=== PATIENT | male | born 1965 | race Caucasian/White ===

== ENCOUNTER 2023-04-13 20:56 | Observation (INO) ==
--- NOTE | 2023-04-13 21:22 | DR.CP ---
HPI Time Seen Time Seen by Provider: 04/13/23 21:21 PCP Primary Care Physician: AMARAN Complaint Chief Complaint Doctor Comments: Patient states that he began to have chest pressure this am while he was lying down. Patient states that he has been feeli ng weak all day and has had pain for the past 13 hrs.He states the pain would increase when he would ambulate. But he did not ambulate much because he has been weak. Patient states that he took his am meds this morning: lisinopril/topomax.Patient states that his pain is 5/10 and is a heaviness like something is sitting on his chest.Patient also feels SOB.Patient has h/o htn,he is 58. Patient denies:FH,DM,hypercholesterolemia,tobacco use,CAD,n,v,fever,h/o surgery in the past 3 months. Chief Complaint:: PATIENT C/O CHEST PRESSURE WITH PAIN THAT STARTED THIS MORNING WHEN HE GOT UP. PATIENT STATES THE PAIN HAS BEEN INTERMITTEN, BUT THE PRESSURE WILL NOT STOP. PATIENT STATES HE HAS BEEN FEELING FATIGUED TODAY AND HAVING SHORTNESS OF BREATH. COVID-19 Coronavirus risk:travel/contact w/high risk person: No Has patient experienced Coronavirus symptoms: No Source History Provided: Patient Mode of Arrival Mode of Arrival: Ambulatory Timing Onset of Chief Complaint: 04/13/23 PMH PMH Past Medical History: Yes Past Medical History: Migraines, Gout and Hypertension Past Surgical History: Yes Surgical History: Appendectomy and Ortho Surgery Past Surgical History Comment: KNEE SURGERY X3 Family History History of Family Medical Conditions: No Social History Does any household member use tobacco: No Alcohol Use: None Do you use any recreational Drugs:: No Lives With: Family Lives Where: Home Travel Risk Coronavirus risk:travel/contact w/high risk person: No Has patient experienced Coronavirus symptoms: No Infectious screening In the last 2 months have you had wt loss of >10#?: NO Have you had fever, night sweats or hemotysis?: No Have you traveled outside the country in the last 6 months?: No Isolation: Standard ROS Review of Systems Constitutional: No Symptoms Reported; negative Chills or Fever Eyes: No Symptoms Reported ENTM: No Symptoms Reported Respiratoy: No Symptoms Reported Cardiovascular: No Symptoms Reported and Chest Pain; negative Palpitations or Syncope Gastrointestinal/Abdominal: No Symptoms Reported Genitourinary: No Symptoms Reported Neurological: No Symptoms Reported and Weakness; negative Headache, Numbness or Paresthesia Musculoskeletal: No Symptoms Reported Integumentary: No Symptoms Reported Hematologic/Lymphatic: No Symptoms Reported Endocrine: No Symptoms Reported Psychiatric: No Symptoms Reported All Other Systems: Reviewed and Negative PE Vitals Vitals: Vital Signs Temperature 98.0 F Pulse Rate [Right] 99 Pulse Rate 72 Pulse Rate 78 Pulse Rate 73 Pulse Rate 77 Pulse Rate 80 Pulse Rate 77 Pulse Rate 77 Pulse Rate 67 Pulse Rate 66 Pulse Rate 68 Pulse Rate 70 Pulse Rate 71 Pulse Rate 73 Pulse Rate 80 Pulse Rate 76 Pulse Rate 78 Pulse Rate 79 Pulse Rate 75 Pulse Rate 80 Pulse Rate 84 Pulse Rate 83 Pulse Rate 77 Pulse Rate 78 Pulse Rate 82 Pulse Rate 78 Pulse Rate 80 Pulse Rate 81 Pulse Rate 85 Pulse Rate 78 Pulse Rate 72 Pulse Rate 73 Pulse Rate 73 Pulse Rate 73 Pulse Rate 77 Pulse Rate 81 Pulse Rate 80 Pulse Rate 83 Pulse Rate 87 Pulse Rate 85 Pulse Rate 83 Pulse Rate 87 Pulse Rate 85 Pulse Rate 90 Pulse Rate 92 Pulse Rate 97 Pulse Rate 97 Pulse Rate 91 Pulse Rate 97 Pulse Rate 93 Pulse Rate 98 Pulse Rate 103 Pulse Rate 101 Pulse Rate 98 Respiratory Rate 18 Respiratory Rate 24 Respiratory Rate 17 Respiratory Rate 36 Respiratory Rate 29 Respiratory Rate 20 Respiratory Rate 28 Respiratory Rate 15 Respiratory Rate 16 Respiratory Rate 17 Respiratory Rate 16 Respiratory Rate 17 Respiratory Rate 17 Respiratory Rate 26 Respiratory Rate 23 Respiratory Rate 24 Respiratory Rate 28 Respiratory Rate 24 Respiratory Rate 28 Respiratory Rate 35 Respiratory Rate 27 Respiratory Rate 17 Respiratory Rate 20 Respiratory Rate 24 Respiratory Rate 22 Respiratory Rate 22 Respiratory Rate 26 Respiratory Rate 22 Respiratory Rate 27 Respiratory Rate 18 Respiratory Rate 17 Respiratory Rate 21 Respiratory Rate 16 Respiratory Rate 17 Respiratory Rate 17 Respiratory Rate 17 Respiratory Rate 18 Respiratory Rate 20 Respiratory Rate 20 Respiratory Rate 18 Respiratory Rate 20 Respiratory Rate 17 Respiratory Rate 21 Respiratory Rate 24 Respiratory Rate 19 Respiratory Rate 19 Respiratory Rate 19 Respiratory Rate 24 Respiratory Rate 24 Respiratory Rate 24 Respiratory Rate 20 Respiratory Rate 20 Respiratory Rate 26 Respiratory Rate 20 Respiratory Rate 23 Respiratory Rate 26 Respiratory Rate 25 Respiratory Rate 16 Respiratory Rate 20 Blood Pressure [Right Arm] 154/85 Blood Pressure 140/72 Blood Pressure 153/90 Blood Pressure 153/90 Blood Pressure 132/74 Blood Pressure 136/76 Blood Pressure 136/79 Blood Pressure 146/83 Blood Pressure 156/81 Blood Pressure 127/74 Blood Pressure 131/77 Blood Pressure 129/75 Blood Pressure 126/77 Blood Pressure 130/79 Blood Pressure 139/77 Blood Pressure 151/82 Blood Pressure 129/80 Blood Pressure 134/78 Blood Pressure 131/68 Blood Pressure 142/76 Blood Pressure 133/72 Blood Pressure 145/76 Blood Pressure 138/73 Blood Pressure 153/80 Blood Pressure 151/75 Blood Pressure 147/73 Blood Pressure 133/71 Blood Pressure 128/67 Blood Pressure 143/80 Blood Pressure 129/79 Blood Pressure 128/77 Blood Pressure 127/71 Blood Pressure 122/69 Blood Pressure 120/72 Blood Pressure 130/77 Blood Pressure 129/77 Blood Pressure 134/76 Blood Pressure 134/76 Blood Pressure 135/73 Blood Pressure 138/79 Blood Pressure 140/78 Blood Pressure 136/79 Blood Pressure 134/76 Blood Pressure 130/76 Blood Pressure 139/76 Blood Pressure 137/73 Blood Pressure 128/71 Blood Pressure 132/74 Blood Pressure 154/85 Blood Pressure 155/82 Blood Pressure 159/84 Blood Pressure 157/83 Blood Pressure 162/91 Blood Pressure 162/91 O2 Sat by Pulse Oximetry 96 O2 Sat by Pulse Oximetry 95 O2 Sat by Pulse Oximetry 96 O2 Sat by Pulse Oximetry 96 O2 Sat by Pulse Oximetry 97 O2 Sat by Pulse Oximetry 97 O2 Sat by Pulse Oximetry 97 O2 Sat by Pulse Oximetry 96 O2 Sat by Pulse Oximetry 96 O2 Sat by Pulse Oximetry 96 O2 Sat by Pulse Oximetry 95 O2 Sat by Pulse Oximetry 96 O2 Sat by Pulse Oximetry 98 O2 Sat by Pulse Oximetry 97 O2 Sat by Pulse Oximetry 96 O2 Sat by Pulse Oximetry 97 O2 Sat by Pulse Oximetry 97 O2 Sat by Pulse Oximetry 97 O2 Sat by Pulse Oximetry 97 O2 Sat by Pulse Oximetry 99 O2 Sat by Pulse Oximetry 96 O2 Sat by Pulse Oximetry 95 O2 Sat by Pulse Oximetry 96 O2 Sat by Pulse Oximetry 98 O2 Sat by Pulse Oximetry 96 O2 Sat by Pulse Oximetry 96 O2 Sat by Pulse Oximetry 96 O2 Sat by Pulse Oximetry 97 O2 Sat by Pulse Oximetry 97 O2 Sat by Pulse Oximetry 97 O2 Sat by Pulse Oximetry 95 O2 Sat by Pulse Oximetry 94 O2 Sat by Pulse Oximetry 95 O2 Sat by Pulse Oximetry 94 O2 Sat by Pulse Oximetry 95 O2 Sat by Pulse Oximetry 95 O2 Sat by Pulse Oximetry 96 O2 Sat by Pulse Oximetry 95 O2 Sat by Pulse Oximetry 96 O2 Sat by Pulse Oximetry 95 O2 Sat by Pulse Oximetry 95 O2 Sat by Pulse Oximetry 95 O2 Sat by Pulse Oximetry 96 O2 Sat by Pulse Oximetry 95 O2 Sat by Pulse Oximetry 94 O2 Sat by Pulse Oximetry 94 O2 Sat by Pulse Oximetry 97 O2 Sat by Pulse Oximetry 96 O2 Sat by Pulse Oximetry 96 O2 Sat by Pulse Oximetry 96 O2 Sat by Pulse Oximetry 97 O2 Sat by Pulse Oximetry 98 O2 Sat by Pulse Oximetry 96 O2 Sat by Pulse Oximetry 98 General Limitations: No Limitations General Appearance: Alert and In No Apparent Distress Head Head Exam: Normal Inspection Eyes Eye exam: Normal Appearance ENT ENT Exam: Normal Exam Chest Chest Inspection: Normal Inspection Respiratory Respiratory Exam: Normal Lung Sounds Bilat Respiratory Exam: Bilateral: Clear to Auscultation Cardiovascular Cardiovascular Exam: Regular Rate and Normal Rhythm Pulse: Normal Edema: Normal Abdominal Exam Abdominal Exam: Normal Inspection, Normal Bowel Sounds and Soft Extremities Extremities Exam: Normal Inspection Back Back Exam: Normal Inspection Neurologic Neurological Exam: Alert and Oriented X3 Psychiatric Psychiatric Exam: Normal Affect and Normal Mood Skin Skin Exam: Warm, Dry, Intact and Normal Color MDM Differential Diagnosis Differential Diagnosis: Angina, CHF, Myocardial Infarction, Pancreatitis, Pneumonia and Pulmonary Embolus COURSE Treatment Treatment: 21:21 Examined patient.IV access initiated. Labs and CXR ordered. 21:25 ASA 324mg /NTG sl ordered/tylenol 500mg x 2. 21:56 EKG revealed t wave inversion lead III/Tropo 7.6/Mg 2.o/D-Dimer 0.31/Creat 1.36/CXR no acute process 00:50 Patient's 2nd troponin is 8.3 and his second EKG revealed twave inversion lead III. Patient continues with chest pain Patient has been accepted by Dr Fenton to his service for further evaluation at [facility]. Patient has been stable in the ED. ROR Labs Reviewed Laboratory Results Reviewed?: Yes Result Diagrams: 04/13/23 21:25 04/13/23 21:25 Laboratory: WBC 12.4 X10^3/uL (3.6-10.0) H 04/13/23 21:25 RBC 4.76 X10^6/uL (4.7-6.0) 04/13/23 21:25 Hgb 15.6 g/dL (13.5-18.0) 04/13/23 21:25 Hct 45.6 % (42.0-54.0) 04/13/23 21:25 MCV 95.8 fL (80.0-100.0) 04/13/23 21:25 MCH 32.7 pg (27.0-34.0) 04/13/23 21: MCHC 34.2 g/dL (33.0-35.0) 04/13/23 21:25 RDW 12.3 % (11.6-16.5) 04/13/23 21:25 Plt Count 251 X10^3/uL (150.0-450.0) 04/13/23 21:25 MPV 9.1 fL (7.4-11.0) 04/13/23 21:25 Neut % (Auto) 67.5 % (42.0-75.0) 04/13/23 21:25 Lymph % (Auto) 18.0 % (21.0-51.0) L 04/13/23 21:25 [place] % (Auto) 10.4 % (0.0-13.0) 04/13/23 21:25 Eos % (Auto) 3.6 % (0.9-2.9) H 04/13/23 21:25 Baso % (Auto) 0.5 % (0.2-1.0) 04/13/23 21:25 Neut # (Auto) 8.4 x10^3/uL (2.2-4.8) H 04/13/23 21:25 Lymph # (Auto) 2.2 X10^3/uL (1.3-2.9) 04/13/23 21:25 [place] # (Auto) 1.3 x10^3/uL (0.3-0.8) H 04/13/23 21:25 Eos # (Auto) 0.4 x10^3/uL (0.0-0.2) H 04/13/23 21:25 Baso # (Auto) 0.1 X10^3/uL (0.0-0.1) 04/13/23 21: Absolute Nucleated RBC 0.1 /100WBC 04/13/23 21: PT 12.7 SECONDS (11.8-14.3) 04/13/23 21:25 INR Target Range - 04/13/23 21: INR 0.97 (0.8-1.3) 04/13/23 21:25 APTT 27.9 SECONDS (22.9-36.5) 04/13/23 21:25 PTT Comment - 04/13/23 21:25 D-Dimer 0.34 ug/ml (0.0-0.57) 04/13/23 21:25 D-Dimer Cancelled 04/13/23 21:25 Sodium 139 mmol/L (136-145) 04/13/23 21:25 Corrected Sodium TNP 04/13/23 21:25 Potassium 4.3 mmol/L (3.5-5.1) 04/13/23 21:25 Chloride 103 mmol/L (98-107) 04/13/23 21:25 Carbon Dioxide 28.5 mmol/L (21-32) 04/13/23 21:25 BUN 12 mg/dL (7-18) 04/13/23 21:25 Creatinine 1.36 mg/dL (0.70-1.30) H 04/13/23 21:25 Est GFR (MDRD) Af Amer > 60 (>60) 04/13/23 21:25 Est GFR (MDRD) Non-Af 57 (>60) L 04/13/23 21:25 Glucose 96 mg/dL (65-99) 04/13/23 21:25 Calcium 8.5 mg/dL (8.5-10.1) 04/13/23 21:25 Corrected Calcium 9.1 mg/dL (8.5-10.1) 04/13/23 21:25 Magnesium 2.0 mg/dL (2.0-2.9) 04/13/23 21:25 Total Bilirubin 0.30 mg/dL (0.2-1.0) 04/13/23 21:25 AST 16 Units/L (15-37) 04/13/23 21:25 ALT 17 Units/L (12-78) 04/13/23 21:25 Alkaline Phosphatase 100 Units/L (46-116) 04/13/23 21:25 Creatine Kinase 72 Units/L (39-308) 04/13/23 21:25 Troponin I High Sens 8.3 ng/L (4.0-60.0) 04/13/23 23:35 B-Natriuretic Peptide 29.3 pg/mL (0-79) 04/13/23 21:25 Total Protein 7.1 g/dL (6.4-8.2) 04/13/23 21:25 Albumin 3.3 g/dL (3.4-5.0) L 04/13/23 21:25 Globulin 3.8 g/dL (2.5-4.5) 04/13/23 21:25 Albumin/Globulin Ratio 0.9 Ratio (1.1-2.1) L 04/13/23 21:25 Amylase 50 Units/L (25-115) 04/13/23 21:25 Lipase 147 Units/L (73-393) 04/13/23 21:25 EKG Compared to prior EKG Dated: 04/13/23 Rate: 92 [place]: Normal (negative axis) Rhythm: NSR ST: Ischemia (t wave inversion lead III) Opioid Opioid Risk Tool Age (Raoul box if 16-45): No History of Preadolescent Sexual Abuse: No Total: 0 Total Score Risk Category: Low Risk Copyright: Toro predicting aberrant behaviors Discharge Plan Diagnosis Discharge Problem: Chest pain Discharge Plan Patient Disposition: ADMITTED INPATIENT Condition: Stable Prescriptions: No Action lisinopril-hydrochlorothiazide 20-25 mg Tablet 1 tab PO QDAY zinc 50 mg Tablet 50 mg PO QDAY topiramate [Topamax] 50 mg Tablet 50 mg PO BID allopurinol 200 mg Tablet 200 mg PO QDAY Health Concerns: Post Hospitalization: new medications and changes needed to prevent readmission or further decline. Pt educated and given instructions on all concerns. Plan of Treatment: Continue with present treatment and follow up plan. Pt is to keep follow up appointment as instructed and take medications as ordered. Orders to Discharge Patient Discharge Orders: Transfer (Routine); Ordered 04/14/23 Ordered By: Liz Bergman Follow ups/Referrals Follow ups/Referrals: AMALIA ESTRADA [Primary Care Provider] - 3 days Instructions Stand Alone Forms: Post Hospital Follow Up Care ADDITIONAL NOTES Additional Notes Additional Notes: EK:06 RATE 75 AXIS Neg Rhythm NSR Ischemia Twave inversion Lead III
[2023-04-13] MEDS ORDERED: TYLENOL 500 MG TAB EXTRA STRENGTH PO ONE ×2 (21:27→21:29)
[2023-04-13] MEDS ORDERED: ASPIRIN 81 MG CHEWTAB ONE (21:29)
--- NOTE | 2023-04-13 21:32 | EKG ---
Test Reason : CHEST PAIN Blood Pressure : */* mmHG Vent. Rate : 92 BPM Atrial Rate : 92 BPM P-R Int : 144 ms QRS Dur : 94 ms QT Int : 364 ms P-R-T Axes : 21 -36 11 degrees QTc Int : 450 ms Normal sinus rhythm Left axis deviation Minimal voltage criteria for LVH, may be normal variant ( R in aVL ) Possible Lateral infarct , age undetermined Abnormal ECG No previous ECGs available Confirmed by Missael Clayton ([id number]) on 04/14/2023 8:17:32 AM Referred By: Confirmed By: Missael Clayton
[2023-04-13 21:35] LABS: BASOPHILS # (AUTO) 0.1 X10^3/uL (0.0-0.1); BASOPHILS % (AUTO) 0.5 % (0.2-1.0); EOSINOPHILS # (AUTO) 0.4 x10^3/uL (0.0-0.2); EOSINOPHILS % (AUTO) 3.6 % (0.9-2.9); HEMATOCRIT 45.6 % (42.0-54.0); HEMOGLOBIN 15.6 g/dL (13.5-18.0); LYMPHOCYTES # (AUTO) 2.2 X10^3/uL (1.3-2.9); MEAN CORPUSCULAR HEMOGLOBIN 32.7 pg (27.0-34.0); MEAN CORPUSCULAR HGB CONC 34.2 g/dL (33.0-35.0); MEAN CORPUSCULAR VOLUME 95.8 fL (80.0-100.0); MEAN PLATELET VOLUME 9.1 fL (7.4-11.0); MONOCYTES # (AUTO) 1.3 x10^3/uL (0.3-0.8); MONOCYTES % (AUTO) 10.4 % (0.0-13.0); NEUTROPHILS # (AUTO) 8.4 x10^3/uL (2.2-4.8); NEUTROPHILS % (AUTO) 67.5 % (42.0-75.0); PLATELET COUNT 251 X10^3/uL (150.0-450.0); RED BLOOD COUNT 4.76 X10^6/uL (4.7-6.0); RED CELL DISTRIBUTION WIDTH 12.3 % (11.6-16.5); WHITE BLOOD COUNT 12.4 X10^3/uL (3.6-10.0)
[2023-04-13] MEDS ORDERED: ASPIRIN 81 MG CHEWTAB PO ONE (21:35)
[2023-04-13 21:38] LABS: INR 0.97 (0.8-1.3)
[2023-04-13] MEDS: NITROSTAT SL PRN ×2 (21:40→21:45)
--- NOTE | 2023-04-13 21:48 | RAD ---
STUDY: FRONTAL VIEW CHESTCOMPARISON: NoneHISTORY: Chest pressureFINDINGS:Exam is limited due to poor inspiratory effort which can result in exaggeration of the cardiac silhouette size and pulmonary vasculature.No focal consolidation is seen.The heart size is within normal limits.The mediastinum is unremarkable.There is no evidence of pleural effusion or gross pneumothorax.The trachea is midline.IMPRESSION:1. No focal consolidation is seen.2. The heart size is normal.Electronically signed by: Terrell Barrios (Apr 13, 2023 21:46:49)
[2023-04-13 21:50] LABS: ALANINE AMINOTRANSFERASE 17 Units/L (12-78); ALBUMIN 3.3 g/dL (3.4-5.0); ALKALINE PHOSPHATASE 100 Units/L (46-116); ASPARTATE AMINO TRANSFERASE 16 Units/L (15-37); BLOOD UREA NITROGEN 12 mg/dL (7-18); CALCIUM 8.5 mg/dL (8.5-10.1); CARBON DIOXIDE 28.5 mmol/L (21-32); CHLORIDE 103 mmol/L (98-107); COR CA(FOR HYPOALB) 9.1 mg/dL (8.5-10.1); CREATINE KINASE 72 Units/L (39-308); CREATININE 1.36 mg/dL (0.70-1.30); GLUCOSE 96 mg/dL (65-99); POTASSIUM 4.3 mmol/L (3.5-5.1); SODIUM 139 mmol/L (136-145); TOTAL PROTEIN 7.1 g/dL (6.4-8.2); eGFR NON BLACK RACES 57 (>60)
--- NOTE | 2023-04-13 23:08 | EKG ---
Test Reason : CHEST PAIN Blood Pressure : */* mmHG Vent. Rate : 75 BPM Atrial Rate : 75 BPM P-R Int : 156 ms QRS Dur : 98 ms QT Int : 396 ms P-R-T Axes : 41 -39 29 degrees QTc Int : 442 ms Normal sinus rhythm with sinus arrhythmia Left axis deviation Minimal voltage criteria for LVH, may be normal variant ( R in aVL ) Cannot rule out Inferior infarct , age undetermined Possible Anterolateral infarct (cited on or before 13-APR-2023) Abnormal ECG When compared with ECG of 13-APR-2023 21:30, (Unconfirmed) No significant change was found Confirmed by Missael Clayton ([id number]) on 04/14/2023 8:17:19 AM Referred By: Confirmed By: Missael Clayton
--- NOTE | 2023-04-14 02:45 | EKG ---
Test Reason : chest pain Blood Pressure : */* mmHG Vent. Rate : 72 BPM Atrial Rate : 72 BPM P-R Int : 160 ms QRS Dur : 96 ms QT Int : 404 ms P-R-T Axes : 29 -38 18 degrees QTc Int : 442 ms Normal sinus rhythm Left axis deviation Minimal voltage criteria for LVH, may be normal variant ( R in aVL ) Inferior infarct (cited on or before 13-APR-2023) Possible Anterolateral infarct (cited on or before 13-APR-2023) Abnormal ECG When compared with ECG of 13-APR-2023 23:06, (Unconfirmed) No significant change was found Confirmed by Missael Clayton ([id number]) on 04/14/2023 8:16:44 AM Referred By: Confirmed By: Missael Clayton
[2023-04-14 03:23] VITALS: BMI 32.1
[2023-04-14 04:05] VITALS: RESP 20
[2023-04-14 06:03] LABS: BASOPHILS # (AUTO) 0.1 X10^3/uL (0.0-0.1); BASOPHILS % (AUTO) 0.6 % (0.2-1.0); EOSINOPHILS # (AUTO) 0.5 x10^3/uL (0.0-0.2); EOSINOPHILS % (AUTO) 5.4 % (0.9-2.9); LYMPHOCYTES % (AUTO) 21.8 % (21.0-51.0); MEAN CORPUSCULAR HEMOGLOBIN 32.8 pg (27.0-34.0); MEAN CORPUSCULAR HGB CONC 34.1 g/dL (33.0-35.0); MEAN CORPUSCULAR VOLUME 96.3 fL (80.0-100.0); MEAN PLATELET VOLUME 9.5 fL (7.4-11.0); MONOCYTES # (AUTO) 0.9 x10^3/uL (0.3-0.8); MONOCYTES % (AUTO) 10.1 % (0.0-13.0); NEUTROPHILS # (AUTO) 5.8 x10^3/uL (2.2-4.8); NEUTROPHILS % (AUTO) 62.1 % (42.0-75.0); PLATELET COUNT 244 X10^3/uL (150.0-450.0); RED BLOOD COUNT 4.57 X10^6/uL (4.7-6.0); RED CELL DISTRIBUTION WIDTH 12.6 % (11.6-16.5); WHITE BLOOD COUNT 9.4 X10^3/uL (3.6-10.0)
[2023-04-14 06:32] LABS: ALANINE AMINOTRANSFERASE 18 Units/L (12-78); ALBUMIN 3.1 g/dL (3.4-5.0); ALKALINE PHOSPHATASE 96 Units/L (46-116); ASPARTATE AMINO TRANSFERASE 16 Units/L (15-37); BLOOD UREA NITROGEN 18 mg/dL (7-18); CALCIUM 8.4 mg/dL (8.5-10.1); CARBON DIOXIDE 27.2 mmol/L (21-32); CHLORIDE 104 mmol/L (98-107); COR CA(FOR HYPOALB) 9.1 mg/dL (8.5-10.1); GLUCOSE 95 mg/dL (65-99); POTASSIUM 4.6 mmol/L (3.5-5.1); SODIUM 139 mmol/L (136-145); TOTAL PROTEIN 6.8 g/dL (6.4-8.2); eGFR NON BLACK RACES > 60 (>60)
--- NOTE | 2023-04-14 08:09 | RAD ---
HISTORYchest painsSTUDYCHEST, 1 [id number]/09/2023.TECHNIQUEPA or AP view of the chestFINDINGSThe cardiac and mediastinal contours are within normal limits. The lungs are clear without focal consolidation or segmental collapse. No pleural effusion or pneumothorax. Soft tissue attenuation limits evaluation.IMPRESSIONNo acute pulmonary process.Electronically signed by: Christofer Francis (Apr 14, 2023 08:08:00)
[2023-04-14 08:35] VITALS: BP 164/87; PULSE 85; TEMP 98; O2SAT 95
[2023-04-14] MEDS ORDERED: ZINC SULFATE PO SCH (09:00)
[2023-04-14] MEDS ORDERED: TOPAMAX PO SCH (09:00)
[2023-04-14] MEDS ORDERED: ZESTORETIC 20/25 MG PO SCH (09:00)
[2023-04-14] MEDS ORDERED: ASPIRIN 81 MG CHEWTAB PO SCH (09:00)
[2023-04-14] MEDS ORDERED: ZYLOPRIM PO SCH (09:00)
--- NOTE | 2023-05-22 16:18 | DR.SSS ---
SHORT STAY SUMMARY Admission Date Date of Admission: 04/14/23 Discharge Date Discharge Date: 04/14/23 Admission Diagnoses Admission Diagnoses: 1. Chest pain rule out MS 2. Hypertension Discharge Diagnoses Discharge Diagnoses: 1. Chest pain resolved and patient has had 3 normal troponins 2. Hypertension stable Chief Complaint Chief Complaint: Chest pressure and pain History of Present Illness History of Present Illness: This is a pleasant 58-year-old white male who came into the emergency department complaining of substernal chest pressure, chest pain, and shortness of breath upon awakening this morning. He also reports being fatigued today. All of these symptoms started when he was lying down. Prior to laying down, he was feeling fatigued all day for about 13 hours and after he laid down and his symptoms started. Past Medical History Past Medical History: Migraines, Gout and Hypertension Past Surgical History Surgical History: Appendectomy and Ortho Surgery Allergies Allergies Allergy/AdvReac Type Severity Reaction Status Date / Time diazepam [From Valium] Allergy Verified 04/13/23 21:28 phenytoin [From Dilantin] Allergy Verified 04/13/23 21:28 Medications Home Medications: diazepam [From Valium] Allergy (Verified 04/13/23 21:28) phenytoin [From Dilantin] Allergy (Verified 04/13/23 21:28) CONTINUE taking the following medications allopurinol 200 mg tablet 200 mg PO QDAY 04/14/23 [History] lisinopril 20 mg-hydrochlorothiazide 25 mg tablet 1 tab PO QDAY 04/14/23 [History] topiramate 50 mg tablet (Topamax) 50 mg PO BID 04/14/23 [History] zinc 50 mg tablet 50 mg PO QDAY 04/14/23 [History] Family History Family Medical History: Diabetes Mellitus, Cancer and Hypertension Social History Does any household member use tobacco: No Alcohol Use: None Drug Use: None Review of Systems Constitutional: No Symptoms Reported Eyes: No Symptoms Reported ENT: No Symptoms Reported Respiratory: No Symptoms Reported Cardiovascular: Chest Pain Gastrointestinal: No Symptoms Reported Genitourinary: No Symptoms Reported Musculoskeletal: No Symptoms Reported Skin: No Symptoms Reported Neurological: No Symptoms Reported Physical Exam Vital Signs: Last Vital Signs Temp 98 F 04/14/23 08:00 Pulse 85 04/14/23 08:00 Resp 20 04/14/23 08:00 BP 164/87 04/14/23 08:00 Pulse Ox 95 04/14/23 08:00 O2 Del Method Room Air 04/14/23 08:58 FiO2 21 04/14/23 08:58 Oriented: Normal, Time, Person and Place Eyes: Normal Throat: Normal Respiratory: Clear Throughout Cardiovascular: Normal Auscultation: Bowel Sounds: Normal Palpation: Normal Tenderness: Normal Skin: Normal Musculoskeletal: Normal Psychiatric: Normal Mood Description: Calm Affect: Normal Speech Pattern: Clear and Appropriate Labs Labs: Laboratory Last Values WBC 9.4 X10^3/uL (3.6-10.0) 04/14/23 05:12 RBC 4.57 X10^6/uL (4.7-6.0) L 04/14/23 05:12 Hgb 15.0 g/dL (13.5-18.0) 04/14/23 05:12 Hct 44.0 % (42.0-54.0) 04/14/23 05:12 MCV 96.3 fL (80.0-100.0) 04/14/23 05:12 MCH 32.8 pg (27.0-34.0) 04/14/23 05:12 MCHC 34.1 g/dL (33.0-35.0) 04/14/23 05:12 RDW 12.6 % (11.6-16.5) 04/14/23 05:12 Plt Count 244 X10^3/uL (150.0-450.0) 04/14/23 05:12 MPV 9.5 fL (7.4-11.0) 04/14/23 05:12 Neut % (Auto) 62.1 % (42.0-75.0) 04/14/23 05:12 Lymph % (Auto) 21.8 % (21.0-51.0) 04/14/23 05:12 [place] % (Auto) 10.1 % (0.0-13.0) 04/14/23 05:12 Eos % (Auto) 5.4 % (0.9-2.9) H 04/14/23 05:12 Baso % (Auto) 0.6 % (0.2-1.0) 04/14/23 05:12 Neut # (Auto) 5.8 x10^3/uL (2.2-4.8) H 04/14/23 05:12 Lymph # (Auto) 2.0 X10^3/uL (1.3-2.9) 04/14/23 05:12 [place] # (Auto) 0.9 x10^3/uL (0.3-0.8) H 04/14/23 05:12 Eos # (Auto) 0.5 x10^3/uL (0.0-0.2) H 04/14/23 05:12 Baso # (Auto) 0.1 X10^3/uL (0.0-0.1) 04/14/23 05:12 Absolute Nucleated RBC 0.1 /100WBC 04/14/23 05:12 PT 12.7 SECONDS (11.8-14.3) 04/13/23 21:25 INR Target Range - 04/13/23 21:25 INR 0.97 (0.8-1.3) 04/13/23 21:25 APTT 27.9 SECONDS (22.9-36.5) 04/13/23 21:25 PTT Comment - 04/13/23 21:25 D-Dimer 0.34 ug/ml (0.0-0.57) 04/13/23 21:25 D-Dimer Cancelled 04/13/23 21:25 Sodium 139 mmol/L (136-145) 04/14/23 05:12 Corrected Sodium TNP 04/14/23 05:12 Potassium 4.6 mmol/L (3.5-5.1) 04/14/23 05:12 Chloride 104 mmol/L (98-107) 04/14/23 05:12 Carbon Dioxide 27.2 mmol/L (21-32) 04/14/23 05:12 BUN 18 mg/dL (7-18) 04/14/23 05:12 Creatinine 1.20 mg/dL (0.70-1.30) 04/14/23 05:12 Est GFR (MDRD) Af Amer > 60 (>60) 04/14/23 05:12 Est GFR (MDRD) Non-Af > 60 (>60) 04/14/23 05:12 Glucose 95 mg/dL (65-99) 04/14/23 05:12 Calcium 8.4 mg/dL (8.5-10.1) L 04/14/23 05:12 Corrected Calcium 9.1 mg/dL (8.5-10.1) 04/14/23 05:12 Magnesium 2.0 mg/dL (2.0-2.9) 04/13/23 21:25 Total Bilirubin 0.30 mg/dL (0.2-1.0) 04/14/23 05:12 AST 16 Units/L (15-37) 04/14/23 05:12 ALT 18 Units/L (12-78) 04/14/23 05:12 Alkaline Phosphatase 96 Units/L (46-116) 04/14/23 05:12 Creatine Kinase 72 Units/L (39-308) 04/13/23 21:25 Troponin I High Sens 8.3 ng/L (4.0-60.0) 04/14/23 05:12 B-Natriuretic Peptide 29.3 pg/mL (0-79) 04/13/23 21:25 Total Protein 6.8 g/dL (6.4-8.2) 04/14/23 05:12 Albumin 3.1 g/dL (3.4-5.0) L 04/14/23 05:12 Globulin 3.7 g/dL (2.5-4.5) 04/14/23 05:12 Albumin/Globulin Ratio 0.8 Ratio (1.1-2.1) L 04/14/23 05:12 Amylase 50 Units/L (25-115) 04/13/23 21:25 Lipase 147 Units/L (73-393) 04/13/23 21:25 Assessment/Plan (1) Chest pain: 1: 5-year-old card enzymes and EKGs to rule out MS. His first troponin in the emergency department is normal. (2) Hypertension: 1: Resume patient's lisinoprilHCTZ and monitor his blood pressure. Hospital Course Hospital Course: Upon admission the patient had no significant problems. Following morning he was symptom-free and all his troponins were normal. EKG showed no acute cardiovascular ischemic changes. Discharge Medications Discharge Medications: Home Medication List allopurinol 200 mg tablet 200 mg PO QDAY 04/14/23 [History] lisinopril 20 mg-hydrochlorothiazide 25 mg tablet 1 tab PO QDAY 04/14/23 [History] topiramate 50 mg tablet (Topamax) 50 mg PO BID 04/14/23 [History] zinc 50 mg tablet 50 mg PO QDAY 04/14/23 [History] Prescriptions: Discharge Plan Discharge Plan Patient Disposition: 01 HOME, SELF-CARE Condition: Stable Health Concerns: Post Hospitalization: new medications and changes needed to prevent readmission or further decline. Pt educated and given instructions on all concerns. Care Plan Goals: Problem: Chest Pain Goals: Chest pain improving/resolved Instructions: Contact your physician or report to the closest Emergency Department if your chest pain returns or worsens. Take medications as prescribed. Follow up with your primary doctor as instructed. Plan of Treatment: Continue with present treatment and follow up plan. Pt is to keep follow up appointment as instructed and take medications as ordered. Prescriptions: Continued lisinopril-hydrochlorothiazide 20-25 mg Tablet 1 tab PO QDAY zinc 50 mg Tablet 50 mg PO QDAY topiramate [Topamax] 50 mg Tablet 50 mg PO BID allopurinol 200 mg Tablet 200 mg PO QDAY Orders to Discharge Patient Discharge Orders: Discharge (Routine); Ordered 04/14/23 Ordered By: YSABEL LEE Follow ups/Referrals Follow ups/Referrals: AMALIA ESTRADA [Primary Care Provider] - 04/21/23 10:00 am Brandan Emanuel [STAFF PHYSICIAN] - (Referral sent on 04/14/23 Office will call you with appointment) Instructions Instructions: Nonspecific Chest Pain, Adult, [place], Aspirin and Your Heart, Hypertension, Adult, [id number] Stand Alone Forms: Excuse From Work or School, Post Hospital Follow Up Care
== END 2023-04-14 10:40 | disposition home or self-care (01) ==
LOC: ER 21:03 → MED/SURG 21:03
PROVIDERS: ADMIT Family Medicine; ATTEND Family Medicine
DX: R94.4 Abnormal results of kidney function studies; R53.83 Other fatigue; R07.89 Other chest pain; I10 Essential (primary) hypertension; R79.89 Other specified abnormal findings of blood chemistry; R06.02 Shortness of breath